=== PATIENT | male | born 2000 | race Two or more races ===

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

== ENCOUNTER 2018-04-21 05:33 | Emergency (ER) | payer MEDICAID ==
[2018-04-21] MEDS ORDERED: DEXAMETHASONE 4 MG TAB PO ONE (05:44)
[2018-04-21] MEDS ORDERED: IBUPROFEN 600 MG TAB PO ONE (05:44)
--- NOTE | 2018-04-21 05:46 | EDPHY ---
H & P Stated Complaint: THROAT PAIN AND DIZZINESS 2 DAYS Time Seen by Provider: 04/21/18 05:38 HPI/ROS: Chief Complaint: Sore throat HPI: 17-year-old male's had sore throat for 3 days. She has been taking some ibuprofen with minimal relief but is worsening. He says it hurts to swallow. No history of strep throat in the past. Has had some mild dizziness as well. No fevers or chills. No cough. No shortness of breath. No nausea or vomiting. No ear pain. No headache. ROS: 10 point Review of Systems is negative except as noted in the HPI. PMH: Denies Social History: No smoking, no alcohol, no recreational drug use Family History: non-contributory Physical Exam: Gen: Awake, Alert, No Distress HEENT: Ears: Normal Nose: no rhinorrhea Eyes: PERRLA, EOMI Mouth: Moist mucosa mild oral pharyngeal erythema without edema or exudate Neck: Supple, no JVD Chest: nontender, lungs clear to auscultation Heart: S1, S2 normal, no murmur Abd: Soft, non-tender, no guarding Back: no CVA tenderness], [no] midline tenderness [] Ext: [no] edema, [non-tender] Skin: [no rash] Neuro: [CN II-XII intact], [Sensation grossly intact], Strength [5]/5 in [ bilateral] [upper and] [lower] extremities - Personal History Current Tetanus/Diphtheria Vaccine: Yes Current Tetanus Diphtheria and Acellular Pertussis (TDAP): Yes - Medical/Surgical History Hx Asthma: No Hx Chronic Respiratory Disease: No Hx Diabetes: No Hx Cardiac Disease: No Hx Renal Disease: No Hx Cirrhosis: No Hx Alcoholism: No Hx HIV/AIDS: No Hx Splenectomy or Spleen Trauma: No Other PMH: denies. - Social History Smoking Status: Never smoked Constitutional: Initial Vital Signs Temperature (C) 36.8 C 04/21/18 05:35 Heart Rate 87 04/21/18 05:35 Respiratory Rate 18 04/21/18 05:35 Blood Pressure 104/62 04/21/18 05:35 O2 Sat (%) 96 04/21/18 05:35 O2 Delivery Mode Room Air Allergies/Adverse Reactions: No Known Allergies Allergy (Verified 04/21/18 05:37) Home Medications: Medication Instructions Recorded NK [No Known Home Meds] 01/08/17 Medical Decision Making ED Course/Re-evaluation: Rapid strep is negative. Will discharge with supportive care, follow up with primary care physician. - Data Points Laboratory Results: 04/21/18 04/21/18 Unknown 05:51 Group A Strep Screen NEGATIVE (NEGATIVE) Group A Strep DNA Pending Medications Given: Discontinued Medications Dexamethasone (Decadron) 10 mg PO EDNOW ONE Stop: 04/21/18 05:45 Last Admin: 04/21/18 05:47 Dose: 10 mg Ibuprofen (Motrin) 600 mg PO EDNOW ONE Stop: 04/21/18 05:45 Last Admin: 04/21/18 05:47 Dose: 600 mg Departure - Departure Disposition: Home, Routine, Self-Care Clinical Impression: Sore throat Condition: Good Instructions: Pharyngitis (ED) Additional Instructions: Alternate acetaminophen (1000 mg) with ibuprofen (400 mg) every 4 hours as needed for pain. Follow up with primary care in 3-4 days for re-evaluation. Referrals: [facility],. [Clinic] - As per Instructions
[2018-04-21 07:00] VITALS: BP 120/68
== END 2018-04-21 07:04 | disposition home or self-care (01) ==
DX: J02.9 Acute pharyngitis, unspecified (principal)